=== PATIENT | female | born 1935 | race Caucasian/White ===

== ENCOUNTER 2022-12-23 07:55 | Inpatient (IN) | payer MEDICARE, OTHER ==
[~2022-12-23] VITALS: Ht 162.6 cm; Wt 65.8 kg
[~2022-12-23 07:55] MED LIST: ALBU8.5H8 INH; FLUT50DI INH; MONT-47 PO
[2022-12-23 08:17] VITALS: BP_SYST 139
[2022-12-23] MEDS ORDERED: IPRATROPIUM/ALBUTEROL SULFATE 3 ML AMPUL.NEB (DUONEB) INH ONE (08:30)
[2022-12-23 08:53] LABS: BASOPHILS % (AUTO) 0.7 % (0.0-2.0); EOSINOPHILS # (AUTO) 0.6 K/uL (0.0-0.4); EOSINOPHILS % (AUTO) 8.4 % (0.0-4.0); HEMATOCRIT 41.4 % (36-48); HEMOGLOBIN 13.5 g/dL (12.0-16.0); LYMPHOCYTES # (AUTO) 1.9 K/uL (1.0-5.5); LYMPHOCYTES % (AUTO) 27.7 % (20.5-51.5); MEAN CORPUSCULAR HEMOGLOBIN 30 pg (27-31); MEAN CORPUSCULAR HGB CONC 33 % (32-36); MEAN CORPUSCULAR VOLUME 91 fL (79.0-98.0); MONOCYTES # (AUTO) 0.4 K/uL (0.0-1.0); MONOCYTES % (AUTO) 6.1 % (1.7-9.3); NEUTROPHILS # (AUTO) 3.9 K/uL (1.8-7.7); NEUTROPHILS % (AUTO) 57.1 % (40.0-70.0); PLATELET COUNT (AUTO) 200 K/uL (130-430); RED BLOOD CELL COUNT(AUTO) 4.55 MIL/uL (4.2-6.2); RED CELL DISTRIBUTION WIDTH 14.8 % (9.0-15.0); WHITE BLOOD COUNT (AUTO) 6.8 K/uL (4.8-10.8)
[2022-12-23 09:01] LABS: ANION GAP 9 (5-15); CALCIUM 8.8 mg/dL (8.4-11.0); CHLORIDE 103 mmol/L (98-107); CREATININE 1.04 mg/dL (0.55-1.30); GLUCOSE 115 mg/dL (70-99); UREA NITROGEN, BLOOD 16 mg/dL (8-21)
[2022-12-23 09:20] LABS: ALANINE AMINOTRANSFERASE 38 U/L (12-78); ALBUMIN 3.5 g/dL (3.4-4.8); ASPARTATE AMINOTRANSFERASE 24 U/L (10-37)
[2022-12-23] MEDS ORDERED: MORPHINE 2 MG/ML INJ. SYRINGE IVP PRN (12:00)
[2022-12-23] MEDS ORDERED: HYDROcodone/ACETAMIN 10-325 MG TAB PO PRN (12:00)
[2022-12-23] MEDS ORDERED: ONDANSETRON HCL 4 MG/2 ML VIAL IVP PRN (12:00)
[2022-12-23] MEDS ORDERED: IPRATROPIUM/ALBUTEROL SULFATE 3 ML AMPUL.NEB (DUONEB) INH PRN (12:15)
[2022-12-23] MEDS ORDERED: APIXABAN 2.5 MG TABLET PO ONE (12:30)
[2022-12-23] MEDS ORDERED: BUDESONIDE 0.5 MG/2 ML AMPUL.NEB INH ONE (12:30)
[2022-12-23] MEDS ORDERED: FUROSEMIDE 40 MG/4 ML VIAL IVP ONE (12:30)
[2022-12-23] MEDS ORDERED: AMIODARONE HCL 200 MG TABLET PO ONE (12:30)
[2022-12-23] MEDS ORDERED: CARVEDILOL 6.25 MG TABLET (COREG) PO ONE (12:30)
[2022-12-23 13:06] VITALS: BP_SYST 128
[2022-12-23 13:59] VITALS: BP_SYST 123
[2022-12-23 14:46] VITALS: BP_SYST 124
[2022-12-23 16:00] VITALS: BP_SYST 124
[2022-12-23] MEDS ORDERED: ATORVASTATIN 20 MG TABLET PO ONE (18:15)
[2022-12-23] MEDS ORDERED: LOSARTAN POTASSIUM 25 MG TABLET PO ONE (18:15)
[2022-12-23] MEDS: BUDESONIDE 0.5 MG/2 ML AMPUL.NEB INH SCH (19:00)
[2022-12-23 20:00] VITALS: BP_SYST 108
[2022-12-23] MEDS: CARVEDILOL 6.25 MG TABLET (COREG) PO SCH (20:45)
[2022-12-23] MEDS: AMIODARONE HCL 200 MG TABLET PO SCH (20:46)
[2022-12-23] MEDS: APIXABAN 2.5 MG TABLET PO SCH (20:47)
[2022-12-24 01:45] VITALS: BP_SYST 96
[2022-12-24 06:46] LABS: BASOPHILS % (AUTO) 0.9 % (0.0-2.0); EOSINOPHILS # (AUTO) 0.5 K/uL (0.0-0.4); EOSINOPHILS % (AUTO) 9.1 % (0.0-4.0); HEMATOCRIT 38.1 % (36-48); HEMOGLOBIN 12.6 g/dL (12.0-16.0); LYMPHOCYTES # (AUTO) 1.4 K/uL (1.0-5.5); LYMPHOCYTES % (AUTO) 28.5 % (20.5-51.5); MEAN CORPUSCULAR HEMOGLOBIN 30 pg (27-31); MEAN CORPUSCULAR HGB CONC 33 % (32-36); MEAN CORPUSCULAR VOLUME 90 fL (79.0-98.0); MONOCYTES # (AUTO) 0.3 K/uL (0.0-1.0); MONOCYTES % (AUTO) 5.7 % (1.7-9.3); NEUTROPHILS # (AUTO) 2.8 K/uL (1.8-7.7); NEUTROPHILS % (AUTO) 55.8 % (40.0-70.0); PLATELET COUNT (AUTO) 170 K/uL (130-430); RED BLOOD CELL COUNT(AUTO) 4.25 MIL/uL (4.2-6.2); RED CELL DISTRIBUTION WIDTH 14.3 % (9.0-15.0); WHITE BLOOD COUNT (AUTO) 5.1 K/uL (4.8-10.8)
[2022-12-24 07:45] LABS: ALANINE AMINOTRANSFERASE 28 U/L (12-78); ANION GAP 8 (5-15); ASPARTATE AMINOTRANSFERASE 21 U/L (10-37); CALCIUM 8.3 mg/dL (8.4-11.0); CHLORIDE 105 mmol/L (98-107); CREATININE 0.99 mg/dL (0.55-1.30); GLUCOSE 84 mg/dL (70-99); TOTAL BILIRUBIN 1.1 mg/dL (0.0-1.0); UREA NITROGEN, BLOOD 19 mg/dL (8-21)
[2022-12-24 08:01] VITALS: BP_SYST 117
[2022-12-24] MEDS: BUDESONIDE 0.5 MG/2 ML AMPUL.NEB INH SCH ×2 (08:02→19:31)
[2022-12-24] MEDS ORDERED: ATORVASTATIN 20 MG TABLET PO SCH (09:00)
[2022-12-24] MEDS: APIXABAN 2.5 MG TABLET PO SCH ×2 (09:01→20:35)
[2022-12-24] MEDS: FUROSEMIDE 40 MG/4 ML VIAL IVP SCH (09:02)
[2022-12-24] MEDS: CARVEDILOL 6.25 MG TABLET (COREG) PO SCH ×2 (09:03→23:00)
[2022-12-24] MEDS: LOSARTAN POTASSIUM 25 MG TABLET PO SCH (09:04)
[2022-12-24] MEDS: AMIODARONE HCL 200 MG TABLET PO SCH ×2 (09:04→21:16)
[2022-12-24] MEDS ORDERED: AMLO5TAB4 PO (10:00)
[2022-12-24] MEDS ORDERED: OLME40TA70 PO (10:00)
[2022-12-24] MEDS ORDERED: EZET10TA30 PO (10:00)
[2022-12-24] MEDS ORDERED: AMIO100T4 PO (10:00)
[2022-12-24] MEDS ORDERED: METO25TA6 PO (10:00)
[2022-12-24] MEDS ORDERED: POTASSIUM CHLORIDE 20 MEQ TAB.PRT.SR PO ONE ×2 (10:00→13:00)
[2022-12-24] MEDS ORDERED: LIP20 PO (10:00)
[2022-12-24] MEDS ORDERED: APIX5TAB4 PO (10:00)
[2022-12-24 11:26] VITALS: BP_SYST 104
[2022-12-24 15:12] VITALS: BP_SYST 95
[2022-12-24 20:00] VITALS: BP_SYST 99
[2022-12-24 21:16] VITALS: BP_SYST 108
[2022-12-25 00:13] VITALS: BP_SYST 101
[2022-12-25 06:49] LABS: BASOPHILS % (AUTO) 0.6 % (0.0-2.0); EOSINOPHILS # (AUTO) 0.2 K/uL (0.0-0.4); EOSINOPHILS % (AUTO) 3.3 % (0.0-4.0); HEMOGLOBIN 12.8 g/dL (12.0-16.0); LYMPHOCYTES # (AUTO) 1.3 K/uL (1.0-5.5); LYMPHOCYTES % (AUTO) 25.4 % (20.5-51.5); MEAN CORPUSCULAR HEMOGLOBIN 30 pg (27-31); MEAN CORPUSCULAR HGB CONC 33 % (32-36); MEAN CORPUSCULAR VOLUME 90 fL (79.0-98.0); MONOCYTES # (AUTO) 0.2 K/uL (0.0-1.0); NEUTROPHILS # (AUTO) 3.4 K/uL (1.8-7.7); NEUTROPHILS % (AUTO) 66.7 % (40.0-70.0); PLATELET COUNT (AUTO) 179 K/uL (130-430); RED BLOOD CELL COUNT(AUTO) 4.35 MIL/uL (4.2-6.2); RED CELL DISTRIBUTION WIDTH 14.4 % (9.0-15.0); WHITE BLOOD COUNT (AUTO) 5.1 K/uL (4.8-10.8)
[2022-12-25] MEDS: BUDESONIDE 0.5 MG/2 ML AMPUL.NEB INH SCH ×2 (07:08→19:51)
[2022-12-25 07:16] LABS: ALANINE AMINOTRANSFERASE 27 U/L (12-78); ALBUMIN 3.1 g/dL (3.4-4.8); ANION GAP 8 (5-15); ASPARTATE AMINOTRANSFERASE 20 U/L (10-37); CALCIUM 8.3 mg/dL (8.4-11.0); CHLORIDE 100 mmol/L (98-107); CHOLESTEROL 114 mg/dL (<200); CREATININE 0.93 mg/dL (0.55-1.30); GLUCOSE 126 mg/dL (70-99); HDL CHOLESTEROL 61 mg/dL (>55); TRIGLYCERIDES 44 mg/dL (30-150); UREA NITROGEN, BLOOD 19 mg/dL (8-21)
[2022-12-25 07:53] VITALS: BP_SYST 129
[2022-12-25] MEDS: ATORVASTATIN 20 MG TABLET PO SCH (08:12)
[2022-12-25] MEDS: POTASSIUM CHLORIDE 20 MEQ TAB.PRT.SR PO SCH (08:13)
[2022-12-25] MEDS: AMIODARONE HCL 200 MG TABLET PO SCH ×2 (08:14→20:36)
[2022-12-25] MEDS: CARVEDILOL 6.25 MG TABLET (COREG) PO SCH ×2 (08:15→20:36)
[2022-12-25] MEDS: LOSARTAN POTASSIUM 25 MG TABLET PO SCH (08:16)
[2022-12-25] MEDS: FUROSEMIDE 40 MG/4 ML VIAL IVP SCH (08:17)
[2022-12-25] MEDS: APIXABAN 2.5 MG TABLET PO SCH ×2 (08:20→20:35)
[2022-12-25] MEDS ORDERED: FUROSEMIDE 40 MG TABLET PO ONE (09:45)
[2022-12-25 11:39] VITALS: BP_SYST 96
[2022-12-25 15:17] VITALS: BP_SYST 94
[2022-12-25 20:00] VITALS: BP_SYST 93
[2022-12-26 02:11] VITALS: BP_SYST 97
[2022-12-26 06:35] LABS: BASOPHILS % (AUTO) 0.3 % (0.0-2.0); EOSINOPHILS # (AUTO) 0.1 K/uL (0.0-0.4); EOSINOPHILS % (AUTO) 2.3 % (0.0-4.0); HEMATOCRIT 37.1 % (36-48); HEMOGLOBIN 12.5 g/dL (12.0-16.0); LYMPHOCYTES # (AUTO) 1.4 K/uL (1.0-5.5); LYMPHOCYTES % (AUTO) 27.3 % (20.5-51.5); MEAN CORPUSCULAR HEMOGLOBIN 30 pg (27-31); MEAN CORPUSCULAR HGB CONC 34 % (32-36); MEAN CORPUSCULAR VOLUME 88 fL (79.0-98.0); MONOCYTES # (AUTO) 0.3 K/uL (0.0-1.0); MONOCYTES % (AUTO) 5.4 % (1.7-9.3); NEUTROPHILS # (AUTO) 3.3 K/uL (1.8-7.7); NEUTROPHILS % (AUTO) 64.7 % (40.0-70.0); PLATELET COUNT (AUTO) 185 K/uL (130-430); RED BLOOD CELL COUNT(AUTO) 4.19 MIL/uL (4.2-6.2); RED CELL DISTRIBUTION WIDTH 14.3 % (9.0-15.0); WHITE BLOOD COUNT (AUTO) 5.1 K/uL (4.8-10.8)
[2022-12-26 06:45] LABS: ANION GAP 9 (5-15); CALCIUM 8.2 mg/dL (8.4-11.0); CHLORIDE 98 mmol/L (98-107); GLUCOSE 120 mg/dL (70-99); UREA NITROGEN, BLOOD 23 mg/dL (8-21)
[2022-12-26] MEDS: BUDESONIDE 0.5 MG/2 ML AMPUL.NEB INH SCH (07:22)
[2022-12-26 08:00] VITALS: BP_SYST 118
[2022-12-26] MEDS: APIXABAN 2.5 MG TABLET PO SCH (08:37)
[2022-12-26] MEDS: LOSARTAN POTASSIUM 25 MG TABLET PO SCH (08:38)
[2022-12-26] MEDS: POTASSIUM CHLORIDE 20 MEQ TAB.PRT.SR PO SCH (08:38)
[2022-12-26] MEDS: AMIODARONE HCL 200 MG TABLET PO SCH (08:39)
[2022-12-26] MEDS: ATORVASTATIN 20 MG TABLET PO SCH (08:39)
[2022-12-26] MEDS: CARVEDILOL 6.25 MG TABLET (COREG) PO SCH (08:39)
[2022-12-26] MEDS ORDERED: FUROSEMIDE 40 MG TABLET PO SCH (09:00)
[2022-12-26] MEDS ORDERED: POTASSIUM CHLORIDE 20 MEQ TAB.PRT.SR PO ONE (10:00)
[2022-12-26] MEDS ORDERED: SACU1TAB PO (11:44)
[2022-12-26] MEDS ORDERED: FURO40SO5 PO (11:45)
[2022-12-26] MEDS ORDERED: POTA-197 PO (11:46)
[2022-12-26 13:11] VITALS: BP_SYST 94
[2022-12-26 13:26] VITALS: BP_SYST 94
[2022-12-27] MEDS ORDERED: AMIODARONE HCL 200 MG TABLET PO SCH (09:00)
== END 2022-12-26 14:20 | disposition home or self-care (01) | DRG 291 ==
LOC: SED 07:55 → EEVIPCON 12:25 → STU 12:25
PROVIDERS: ADMIT Family Medicine; ATTEND Family Medicine
DX: I11.0 Hypertensive heart disease with heart failure (principal); I50.43 Acute on chronic combined systolic (congestive) and diastolic (congestive) heart failure; J96.00 Acute respiratory failure, unspecified whether with hypoxia or hypercapnia; I48.21 Permanent atrial fibrillation; J45.901 Unspecified asthma with (acute) exacerbation; I24.8 Other forms of acute ischemic heart disease; L03.116 Cellulitis of left lower limb; E78.5 Hyperlipidemia, unspecified; I44.7 Left bundle-branch block, unspecified; Z88.6 Allergy status to analgesic agent; Z88.8 Allergy status to other drugs, medicaments and biological substances; Z79.01 Long term (current) use of anticoagulants; Z79.899 Other long term (current) drug therapy; Z90.710 Acquired absence of both cervix and uterus
CPT/HCPCS: 36415; 71045; 80048; 80053; 80061; 83735; 83880; 84439; 84443; 84484; 85025; 85379; 93005; 93306; 93971; 94640; 94760; 96374; 99291; G0378; J1940; J7626

== ENCOUNTER 2023-11-26 16:22 | Inpatient (IN) | payer OTHER ==
[~2023-11-26] VITALS: Ht 162.6 cm; Wt 61.7 kg
[~2023-11-26 16:22] MED LIST changes: +AMIO100T4 PO; +AMLO5TAB4 PO; +APIX5TAB4 PO; +EZET10TA30 PO; +FURO40SO5 PO; +LIP20 PO; +METO25TA6 PO; +POTA-197 PO; +SACU1TAB PO
[2023-11-26 16:43] VITALS: BP_SYST 96; PULSE 101; RESP 22; TEMP 98; O2SAT 95
[2023-11-26 17:25] LABS: BASOPHILS # (AUTO) 0.2 K/uL (0.0-0.2); BASOPHILS % (AUTO) 1.3 % (0.0-2.0); EOSINOPHILS % (AUTO) 0.1 % (0.0-4.0); HEMOGLOBIN 10.9 g/dL (12.0-16.0); LYMPHOCYTES # (AUTO) 0.8 K/uL (1.0-5.5); MEAN CORPUSCULAR HEMOGLOBIN 31 pg (27-31); MEAN CORPUSCULAR HGB CONC 34 % (32-36); MEAN CORPUSCULAR VOLUME 90 fL (79.0-98.0); MONOCYTES # (AUTO) 0.6 K/uL (0.0-1.0); MONOCYTES % (AUTO) 5.3 % (1.7-9.3); NEUTROPHILS # (AUTO) 9.8 K/uL (1.8-7.7); NEUTROPHILS % (AUTO) 86.3 % (40.0-70.0); PLATELET COUNT (AUTO) 154 K/uL (130-430); RED BLOOD CELL COUNT(AUTO) 3.56 MIL/uL (4.2-6.2); RED CELL DISTRIBUTION WIDTH 13.1 % (9.0-15.0); WHITE BLOOD COUNT (AUTO) 11.3 K/uL (4.8-10.8)
[2023-11-26] MEDS: NACL 0.9% 1,000 ML IV ONE (17:28)
[2023-11-26 18:07] LABS: ALANINE AMINOTRANSFERASE 19 U/L (12-78); ALBUMIN 2.9 g/dL (3.4-4.8); ANION GAP 12 (5-15); ASPARTATE AMINOTRANSFERASE 14 U/L (10-37); BILIRUBIN,DIRECT 0.5 mg/dL (0.0-0.3); CALCIUM 7.9 mg/dL (8.4-11.0); CARBON DIOXIDE 23 mmol/L (23-29); CHLORIDE 99 mmol/L (98-107); CREATININE 1.12 mg/dL (0.55-1.30); GLUCOSE 142 mg/dL (74-106); POTASSIUM 3.8 mmol/L (3.5-5.1); SODIUM SERUM 134 mmol/L (136-145); TOTAL BILIRUBIN 1.8 mg/dL (0.0-1.0); UREA NITROGEN, BLOOD 14 mg/dL (8-21)
[2023-11-26] MEDS ORDERED: LORazepam 2 MG/ML VIAL IVP PRN (20:30)
[2023-11-26] MEDS ORDERED: ZOLPIDEM TARTRATE 5 MG TABLET PO PRN (20:30)
[2023-11-26] MEDS ORDERED: ONDANSETRON HCL 4 MG/2 ML VIAL IVP PRN ×2 (20:30→22:00)
[2023-11-26] MEDS ORDERED: MUPIROCIN 2% TOPICAL OINTMENT 22 GM NS PRN (20:30)
[2023-11-26] MEDS ORDERED: ALBUTEROL SULFATE 0.083% 2.5 MG/3 ML VIAL.NEB INH PRN ×2 (20:30→22:00)
[2023-11-26] MEDS ORDERED: MAGNESIUM SULFATE 50 ML IV PRN (20:30)
[2023-11-26] MEDS ORDERED: POTASSIUM CHLORIDE 20 MEQ TABLET.ER PO PRN (20:30)
[2023-11-26] MEDS ORDERED: DOCUSATE SODIUM 100 MG CAPSULE PO PRN (20:30)
[2023-11-26] MEDS ORDERED: ACETAMINOPHEN 325 MG TABLET PO PRN ×2 (20:30→22:00)
[2023-11-26] MEDS ORDERED: INSULIN LISPRO SLIDING SCALE 100 UNITS/ML, 3 ML VIAL (humaLOG) SUBCUT PRN (20:45)
[2023-11-26] MEDS ORDERED: DEXTROSE 50% JECT 50 ML DISP.SYRIN IVP PRN (20:45)
[2023-11-26] MEDS ORDERED: APIXABAN 2.5 MG TABLET PO SCH (21:00)
[2023-11-26] MEDS ORDERED: MORPHINE 2 MG/ML INJ. SYRINGE IVP PRN (22:00)
[2023-11-26] MEDS ORDERED: HYDROcodone/ACETAMIN 10-325 MG TAB PO PRN (22:00)
[2023-11-26] MEDS ORDERED: NALOXONE HCL 0.4 MG/ML AMP (NARCAN) IVP PRN (22:00)
[2023-11-26] MEDS ORDERED: HYDROcodone/ACETAMIN 5-325 MG TAB (NORCO/ VICODIN) PO PRN (22:00)
[2023-11-26 22:08] VITALS: BP_SYST 96; PULSE 101; O2SAT 95
[2023-11-26 22:45] VITALS: BP_SYST 97; PULSE 110; RESP 20; TEMP 97.2
[2023-11-26 23:00] VITALS: BP_SYST 97; PULSE 110; RESP 20; TEMP 97.2; O2SAT 96
[2023-11-26] MEDS: NACL 0.9% 1,000 ML IV SCH (23:01)
[2023-11-26] MEDS: APIXABAN 2.5 MG TABLET PO SCH (23:02)
[2023-11-26 23:33] LABS: BILIRUBIN,URINE NEGATIVE (NEGATIVE); COLOR,URINE YELLOW (YELLOW); GLUCOSE,URINE NEGATIVE (NEGATIVE); KETONES,URINE 1+ (NEGATIVE); LEUKOCYTE ESTERASE ,URINE TRACE (NEGATIVE); NITRITE, URINE NEGATIVE (NEGATIVE); PROTEIN URINE NEGATIVE (NEGATIVE); UROBILINOGEN,URINE 0.2 (0.2-1.0)
[2023-11-27] VITALS (7 sets, daily range): BP systolic 85–103; PULSE 80–116; RESP 16–18; TEMP 97.4–99.1; O2SAT 93–97
[2023-11-27 00:07] LABS: CLARITY/URINE SLIGHTLY CLOUDY (CLEAR)
[2023-11-27 00:08] LABS: BLOOD, URINE 1+ (NEGATIVE)
[2023-11-27 00:10] LABS: BACTERIA,URINE FEW /HPF (None Seen)
[2023-11-27] MEDS ORDERED: AZITHROMYCIN 500 MG in NS 250 ML IV SCH (00:30)
[2023-11-27 04:55] LABS: BASOPHILS % (AUTO) 0.1 % (0.0-2.0); HEMATOCRIT 31.1 % (36-48); HEMOGLOBIN 10.5 g/dL (12.0-16.0); LYMPHOCYTES # (AUTO) 0.7 K/uL (1.0-5.5); LYMPHOCYTES % (AUTO) 7.7 % (20.5-51.5); MEAN CORPUSCULAR HEMOGLOBIN 31 pg (27-31); MEAN CORPUSCULAR HGB CONC 34 % (32-36); MEAN CORPUSCULAR VOLUME 92 fL (79.0-98.0); MONOCYTES # (AUTO) 0.6 K/uL (0.0-1.0); MONOCYTES % (AUTO) 6.3 % (1.7-9.3); NEUTROPHILS % (AUTO) 85.9 % (40.0-70.0); PLATELET COUNT (AUTO) 146 K/uL (130-430); RED CELL DISTRIBUTION WIDTH 13.2 % (9.0-15.0); WHITE BLOOD COUNT (AUTO) 9.3 K/uL (4.8-10.8)
[2023-11-27 04:59] LABS: INR 1.2 (0.8-1.2); PROTHROMBIN TIME 11.9 SECS (9.5-12.5)
[2023-11-27 05:07] LABS: ANION GAP 12 (5-15); CALCIUM 7.8 mg/dL (8.4-11.0); CARBON DIOXIDE 24 mmol/L (23-29); CHLORIDE 105 mmol/L (98-107); CREATININE 0.95 mg/dL (0.55-1.30); GLUCOSE 107 mg/dL (74-106); SODIUM SERUM 141 mmol/L (136-145); UREA NITROGEN, BLOOD 12 mg/dL (8-21)
[2023-11-27] MEDS: DOXYCYCLINE HYCLATE 100 MG VIAL IV ONE (05:50)
[2023-11-27] MEDS: DOXYCYCLINE HYCLATE 100 MG in D5W 100 ML IV SCH (07:45)
[2023-11-27] MEDS: EZETIMIBE 10 MG TABLET PO SCH (08:13)
[2023-11-27] MEDS: ATORVASTATIN 20 MG TABLET PO SCH (08:14)
[2023-11-27] MEDS: MONTELUKAST 10 MG TABLET PO SCH (08:15)
[2023-11-27] MEDS: AMIODARONE HCL 200 MG TABLET PO SCH (08:15)
[2023-11-27] MEDS: METOPROLOL TARTRATE 25 MG TABLET PO SCH (08:16)
[2023-11-27] MEDS ORDERED: FLUTICASONE PROPIONATE INH SCH (09:00)
[2023-11-27] MEDS: NS 500 ML IV ONE (21:20)
[2023-11-27] MEDS: MIDODRINE HCL 5 MG TABLET (PROAMATINE) PO ONE (21:58)
[2023-11-27] MEDS: APIXABAN 2.5 MG TABLET PO SCH (22:00)
[2023-11-27] MEDS ORDERED: NOREPINEPHRINE BITARTRATE 4 MG in D5W 246 ML IV SCH (23:30)
[2023-11-27] MEDS: BUDESONIDE 0.5 MG/2 ML AMPUL.NEB INH SCH (23:35)
[2023-11-28] VITALS (20 sets, daily range): BP systolic 97–134; PULSE 80–110; RESP 11–27; TEMP 98.6–100.3; O2SAT 93–100
[2023-11-28 03:59] LABS: BASOPHILS % (AUTO) 0.2 % (0.0-2.0); EOSINOPHILS % (AUTO) 0.4 % (0.0-4.0); HEMOGLOBIN 9.3 g/dL (12.0-16.0); LYMPHOCYTES # (AUTO) 0.7 K/uL (1.0-5.5); MEAN CORPUSCULAR HEMOGLOBIN 31 pg (27-31); MEAN CORPUSCULAR HGB CONC 34 % (32-36); MEAN CORPUSCULAR VOLUME 91 fL (79.0-98.0); MONOCYTES # (AUTO) 0.7 K/uL (0.0-1.0); MONOCYTES % (AUTO) 9.3 % (1.7-9.3); NEUTROPHILS % (AUTO) 80.1 % (40.0-70.0); PLATELET COUNT (AUTO) 159 K/uL (130-430); RED BLOOD CELL COUNT(AUTO) 2.97 MIL/uL (4.2-6.2); RED CELL DISTRIBUTION WIDTH 13.2 % (9.0-15.0); WHITE BLOOD COUNT (AUTO) 7.5 K/uL (4.8-10.8)
[2023-11-28 05:14] LABS: ALANINE AMINOTRANSFERASE 14 U/L (12-78); ALBUMIN 2.1 g/dL (3.4-4.8); ANION GAP 11 (5-15); ASPARTATE AMINOTRANSFERASE 16 U/L (10-37); CARBON DIOXIDE 22 mmol/L (23-29); CHLORIDE 106 mmol/L (98-107); CREATININE 1.04 mg/dL (0.55-1.30); GLUCOSE 103 mg/dL (74-106); POTASSIUM 3.6 mmol/L (3.5-5.1); SODIUM SERUM 139 mmol/L (136-145); TOTAL BILIRUBIN 0.8 mg/dL (0.0-1.0); TOTAL PROTEIN, SERUM 5.7 g/dL (6.4-8.3); UREA NITROGEN, BLOOD 12 mg/dL (8-21)
[2023-11-28] MEDS ORDERED: NOREPINEPHRINE BITARTRATE 4 MG in D5W 246 ML IV SCH (06:00)
[2023-11-28] MEDS ORDERED: METOPROLOL SUCCINATE 25 MG TAB.SR.24H (TOPROL XL) PO SCH (09:00)
[2023-11-28] MEDS: MIDODRINE HCL 5 MG TABLET (PROAMATINE) PO SCH (09:51)
[2023-11-28] MEDS: cefTRIAXone 1 GM in D5W 50 ML IV SCH (13:21)
[2023-11-28] MEDS ORDERED: CEPH-548 PO (15:03)
[2023-11-28] MEDS ORDERED: DOXY100C5 PO (15:04)
== END 2023-11-28 17:00 | disposition home or self-care (01) | DRG 689 ==
LOC: SED 16:22 → STU 20:30 → UNDODEPER 11-27 00:19 → SIC 11-28 00:10
PROVIDERS: ADMIT Family Medicine; ATTEND Family Medicine
DX: N13.6 Pyonephrosis (principal); J18.9 Pneumonia, unspecified organism; I42.8 Other cardiomyopathies; I48.20 Chronic atrial fibrillation, unspecified; I50.22 Chronic systolic (congestive) heart failure; D72.829 Elevated white blood cell count, unspecified; E78.5 Hyperlipidemia, unspecified; D64.9 Anemia, unspecified; I11.0 Hypertensive heart disease with heart failure; Z79.01 Long term (current) use of anticoagulants; Z79.899 Other long term (current) drug therapy; E83.51 Hypocalcemia; R73.03 Prediabetes; B96.20 Unspecified Escherichia coli [E. coli] as the cause of diseases classified elsewhere
CPT/HCPCS: 36415; 71045; 80048; 80053; 80076; 81000; 81001; 81015; 83037; 83605; 83735; 84484; 85025; 85610; 85730; 87040; 87086; 87186; 93005; 93971; 94070; 94640; 97116-GP; 97163-GP; 97530-GP; 99285; G0378; J0696; J3490; J7060; J7626

== ENCOUNTER 2024-03-12 20:06 | Emergency (ER) | payer OTHER ==
[~2024-03-12] VITALS: Ht 162.6 cm; Wt 59.0 kg
[~2024-03-12 20:06] MED LIST changes: -AMLO5TAB4 PO; +CEPH-548 PO; +DOXY100C5 PO; -FURO40SO5 PO; -METO25TA6 PO; -POTA-197 PO; -SACU1TAB PO
[2024-03-12 20:15] VITALS: BP_SYST 121; PULSE 80; RESP 18; TEMP 96.9; O2SAT 99
[2024-03-12] MEDS ORDERED: ASPIRIN 81 MG TAB.CHEW PO ONE (21:00)
[2024-03-12 21:16] LABS: BASOPHILS % (AUTO) 0.5 % (0.0-2.0); EOSINOPHILS # (AUTO) 0.5 K/uL (0.0-0.4); EOSINOPHILS % (AUTO) 6.6 % (0.0-4.0); HEMATOCRIT 37.3 % (36-48); HEMOGLOBIN 12.7 g/dL (12.0-16.0); LYMPHOCYTES # (AUTO) 2.5 K/uL (1.0-5.5); LYMPHOCYTES % (AUTO) 32.7 % (20.5-51.5); MEAN CORPUSCULAR HEMOGLOBIN 30 pg (27-31); MEAN CORPUSCULAR HGB CONC 34 % (32-36); MEAN CORPUSCULAR VOLUME 89 fL (79.0-98.0); MONOCYTES # (AUTO) 0.5 K/uL (0.0-1.0); MONOCYTES % (AUTO) 6.3 % (1.7-9.3); NEUTROPHILS # (AUTO) 4.1 K/uL (1.8-7.7); NEUTROPHILS % (AUTO) 53.9 % (40.0-70.0); PLATELET COUNT (AUTO) 185 K/uL (130-430); RED BLOOD CELL COUNT(AUTO) 4.21 MIL/uL (4.2-6.2); RED CELL DISTRIBUTION WIDTH 14.3 % (9.0-15.0); WHITE BLOOD COUNT (AUTO) 7.7 K/uL (4.8-10.8)
[2024-03-12 21:28] LABS: PROTHROMBIN TIME 10.6 SECS (9.5-12.5)
[2024-03-12 21:29] LABS: ALANINE AMINOTRANSFERASE 25 U/L (12-78); ALBUMIN 3.6 g/dL (3.4-4.8); ANION GAP 4 (5-15); ASPARTATE AMINOTRANSFERASE 22 U/L (10-37); CALCIUM 8.7 mg/dL (8.4-11.0); CARBON DIOXIDE 32 mmol/L (23-29); CHLORIDE 100 mmol/L (98-107); CREATININE 1.17 mg/dL (0.55-1.30); GLUCOSE 115 mg/dL (74-106); POTASSIUM 4.8 mmol/L (3.5-5.1); SODIUM SERUM 136 mmol/L (136-145); TOTAL BILIRUBIN 0.5 mg/dL (0.0-1.0); UREA NITROGEN, BLOOD 25 mg/dL (8-21)
[2024-03-12 21:32] LABS: BILIRUBIN,DIRECT 0.2 mg/dL (0.0-0.3)
[2024-03-13 00:05] VITALS: BP_SYST 125; PULSE 75; RESP 16; TEMP 98; O2SAT 96
== END 2024-03-13 00:05 | disposition home or self-care (01) ==
LOC: SED 20:06
DX: R55 Syncope and collapse (principal); J45.909 Unspecified asthma, uncomplicated; Z88.6 Allergy status to analgesic agent; Z91.018 Allergy to other foods; Z91.010 Allergy to peanuts; Z91.011 Allergy to milk products; Z79.899 Other long term (current) drug therapy
CPT/HCPCS: 36415; 70450-TC; 71045; 80048; 80076; 83880; 84484; 85025; 85610; 85730; 93005; 99285